=== PATIENT | female | born 1995 | race Caucasian/White ===

== ENCOUNTER 2016-05-15 12:33 | Emergency (ER) | payer MEDICAID ==
[~2016-05-15] VITALS: Ht 170.2 cm; Wt 69.2 kg
[2016-05-15] MEDS ORDERED: SODIUM CHLORIDE 0.9% 1,000 ML IV ONE (13:51)
[2016-05-15] MEDS ORDERED: ONDANSETRON 2MG/ML, 2ML IVPush ONE (14:00)
[2016-05-15] MEDS ORDERED: SODIUM CHLORIDE FLUSH 10ML SYR IVF ONE (14:00)
[2016-05-15] MEDS ORDERED: MORPHINE SULFATE 4 MG/ML, 1ML IVPush PRN (14:00)
[2016-05-15] MEDS ORDERED: SODIUM CHLORIDE 0.9% 1,000ML IVBOLUS ONE (14:00)
[2016-05-15] MEDS ORDERED: MORPHINE SULFATE 4 MG/ML, 1ML ONE (14:04)
[2016-05-15] MEDS ORDERED: ONDANSETRON 2MG/ML, 2ML ONE (14:04)
[2016-05-15 14:14] LABS: HEMOGLOBIN 15.4 g/dL (11.7-16.4)
[2016-05-15 14:30] LABS: BLOOD UREA NITROGEN 7 mg/dL (7-18)
[2016-05-15 14:36] LABS: ASPARTATE AMINO TRANSFERASE 13 U/L (15-37)
[2016-05-15 16:18] VITALS: BP 110/66
== END 2016-05-15 16:24 | disposition home or self-care (01) ==
LOC: ED 14:23
DX: M54.5 Low back pain (principal); M54.6 Pain in thoracic spine; N12 Tubulo-interstitial nephritis, not specified as acute or chronic
CPT/HCPCS: 36415; 74176; 80053; 81001; 83690; 84703; 85025; 96361; 96374; 96375; 99285; J2405; J7030

== ENCOUNTER 2016-05-16 13:03 | Emergency (ER) | payer MEDICAID ==
[~2016-05-16] VITALS: Ht 170.2 cm; Wt 69.5 kg
[2016-05-16 13:07] VITALS: BP 95/65
== END 2016-05-16 13:30 | disposition home or self-care (01) ==
LOC: ED 13:24
DX: H66.001 Acute suppurative otitis media without spontaneous rupture of ear drum, right ear (principal); H60.11 Cellulitis of right external ear; J02.9 Acute pharyngitis, unspecified; F12.10 Cannabis abuse, uncomplicated; J35.1 Hypertrophy of tonsils; Z98.890 Other specified postprocedural states
CPT/HCPCS: 99283